=== PATIENT | female | born 1930 | race Caucasian/White ===

== ENCOUNTER → 2017-02-20 | Outpatient (CLI) | payer OTHER ==
[~2017-02-20] MED LIST: ACTONEL30 MG PO; ATACAND32 MG PO; ATIVAN0.5 MG; BENICAR20 MG PO; BIOTIN2500 MCG PO; CALCIUM OYSTER500 MG PO; CARDIZEM CD180 MG PO; CARDIZEM CD240 MG PO; CELEBREX 200 M200 MG PO; CRESTOR10 MG PO; FISH OIL 1,0001 EAC5 PO; K-DUR 20 MEQ T20 MEQ PO; KEFLEX500 MG; MULTIVITAMINS PO; NEXIUM40 MG PO; TAMSULOSIN HCL0.4 MG; TOPROL XL25 MG PO; TOPROL XL50 MG PO; VICODIN 5-5001 EACH; VITAMIN D31000 UNI2 PO
== END ==
LOC: RAD 01:34
DX: Z12.31 Encounter for screening mammogram for malignant neoplasm of breast (principal)

== ENCOUNTER → 2017-11-10 | Outpatient (CLI) | payer OTHER ==
[~2017-11-10] VITALS: Ht 157.5 cm; Wt 55.3 kg
[~2017-11-10] MED LIST changes: +ALPRAZOLAM 0.0.25 M1 PO; +ASPIR 8181 MG PO; +FOSAMAX 70 MG T70 MG PO; +IBUPROFEN 200200 M1 PO
--- NOTE | ~2017-11-10 | HPC ---
[facility] [place] [address] PAIN MANAGEMENT CONSULTATION Name: DICK YODER Room #: REG [facility] Raul.#: [id number] Admission: 11/10/17 Attend Phys: Jamie Chatterjee MD Discharge: Date of : 31 Report #: [id number] THIS REPORT FOR: //name// CC: Cal Chatterjee DATE OF SERVICE: 11/10/2017 CHIEF COMPLAINT: Left hip pain. HISTORY OF PRESENT ILLNESS: The patient is a arlene independent 87-year-old who I last saw in 2014. She was seen for a single visit and trigger point injection of the gluteus esperanza and medius muscles. She responded beautifully with complete pain relief and is back today with some recurrence. It should be also noted that she was seen in 2008 for the same problem and treated similarly without issue. Today, she reports once again recurrence of the hip pain that has been worsening, affecting her walking and ambulation. 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 Despite her significantly weak right leg, she has had no falls. She does not use a walking device. No cane. No walker. She does have osteoporosis and is treated for it with Fosamax and vitamin D3 and we have discussed the seriousness of falls at the age of 87. Cane maybe a tovar idea if she is walking any distance. 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 She requires no assistance at home. She continues to drive a car. She has noted the pain is worse with standing, walking but while sitting and lying down, she is perfectly comfortable. MEDICATIONS: Aspirin, alprazolam, Fosamax, diltiazem, metoprolol, cholecalciferol, fish oil. She takes Advil p.r.n. and uses Icy Hot. She was just recently started on alprazolam by Dr. Chang because of anxiety. When asked what makes her anxious, she says she has been worrying more about being alone. REVIEW OF SYSTEMS: Completed. The patient denies chest pain, shortness of breath, bowel or bladder issues. No falls noted. She has some degenerative osteoarthritis of multiple joints. She is treated for hypertension. SOCIAL HISTORY: She is , lives alone. Some family is nearby. She denies use of tobacco or alcohol. She does not take narcotic pain medication at this time. [facility] [address] [place] [address] PAIN MANAGEMENT CONSULTATION Name: DICK YODER Room #: REG CLNiesha CarterJelly#: [id number] Admission: 11/10/17 Attend Phys: Jamie Chatterjee MD Discharge: Date of : 31 Report #: [id number] PHYSICAL EXAMINATION: GENERAL: She is a arlene 87-year-old pleasant, alert and oriented, very sharp. VITAL SIGNS: Blood pressure is 172/72, heart rate 62, respirations 16. She is 5 feet 2 inches, 122 pounds, BMI of 22.3. CHEST: Clear. CARDIAC: Rhythm was regular. ABDOMEN: Soft. MUSCULOSKELETAL: She can independently move from a chair to a standing position. She walks moving her right leg cautiously and carefully to provide a stable point of transfer. She is able to turn without any instability. Spinal alignment is normal and she has good range of motion with no tenderness. She does have localized tenderness in the muscles of the left hip with mild radiation to the lateral thigh, but no further. Straight leg raising is negative for radicular symptoms. Deep tendon reflexes are trace at the knees and absent at the ankle. She has markedly weak and atrophied right leg. She is able, however, to hip flex, leg extend and she has some weakness in plantar and dorsiflexion. Sensation is intact. IMPRESSION: Left hip pain, chronic and recurrent, myofascial gluteus esperanza, gluteus medius. This has responded beautifully to simple trigger point injections up to 3-year intervals. PLAN: I will repeat the injections today as before with bupivacaine and triamcinolone. PROCEDURE: The patient was placed in the right lateral decubitus position and the right hip was prepped with ChloraPrep. Trigger points identified and injected in the gluteus esperanza medius in a fan-shape fashion with 8 mL of 0.25% bupivacaine and 40 mg triamcinolone. She tolerated the procedure well. She was observed for a short time and was discharged with improvement. Followup visit planned as needed. By: [id number] Jamie Chatterjee MD /nt
[2017-11-10 08:13] VITALS: BP 172/72
== END | disposition home or self-care (01) ==
LOC: PAIN 07:28
DX: M79.1 Myalgia (principal); M25.552 Pain in left hip; G89.29 Other chronic pain; I10 Essential (primary) hypertension; M19.90 Unspecified osteoarthritis, unspecified site; F41.9 Anxiety disorder, unspecified; Z98.890 Other specified postprocedural states; Z79.82 Long term (current) use of aspirin; Z79.899 Other long term (current) drug therapy; Z88.8 Allergy status to other drugs, medicaments and biological substances

== ENCOUNTER → 2018-01-05 | Outpatient (CLI) | payer OTHER ==
[~2018-01-05] VITALS: Ht 157.5 cm; Wt 55.7 kg
[~2018-01-05] MED LIST changes: +BENICAR40 MG PO
--- NOTE | ~2018-01-05 | HPC ---
[facility] [place] [address] [place] [address] PAIN MANAGEMENT CONSULTATION Name: DICK YODER [id number] Admission: 01/05/18 Attend Phys: Jamie Chatterjee MD Discharge: Date of : 31 Report #: [id number] THIS REPORT FOR: //name// CC: aCl Chatterjee DATE OF SERVICE: 01/05/2018 Followup visit for left hip pain and radiation into the left thigh. The patient returns to pain clinic today, presenting with symptoms more consistent with radiculopathy. I have treated her previously with triamcinolone trigger point injections, which were helpful. Today, I think her pain seems more related to the L4-L5 nerve root and in review of her MRI, I see that she has a grade 1 spondylolisthesis at L4-L5. She also has facet arthropathy there. Some of her pain may be radicular as well as some referred pain from the facet joint. MEDICATIONS: Reviewed and reconciled. She is on Benicar, Advil, aspirin, alprazolam, Fosamax, Cardizem, Toprol, vitamin D and fish oil. ALLERGIES: BARBITURATES AND CEPHALEXIN. PAST MEDICAL HISTORY: Significant for polio. She has a weak right leg with external rotation of the right leg. PQRS: Notes bright and alert 87-year-old with history of osteoarthritis involving hips and spine. She has kept her weight under control with a BMI of 22.5. She is under treatment for hypertension and is mildly hypertensive today with blood pressure 171/73, heart rate 70. She is not a fall risk and has not fallen in the last 3 months. She takes no opioid medication. Does not drink nor smoke. PHYSICAL EXAMINATION: Her gait is noted to be antalgic and she swings her right leg carefully with the foot pointed at 45 degrees lateral. This is chronic from her polio. She has tenderness located over the left hip and gluteus muscles with radiation and went straight leg raising into the left thigh. Sensation is intact. Generalized weakness is noted in the right leg from her polio. She has no foot drop on the left, but has weakness on the right. IMPRESSION: 1. 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 3. Hypertension. [address] [address] PAIN MANAGEMENT CONSULTATION Name: BEBADICK EMILIANO Room #: REG ALIVIA Raya#: [id number] Admission: 01/05/18 Attend Phys: Jamie Chatterjee MD Discharge: Date of : 31 Report #: [id number] RECOMMENDATIONS: Trial of epidural steroid injection L4-L5 left paramedian. PROCEDURE: She was taken to fluoroscopic suite, placed prone, skin prepped with ChloraPrep. Skin anesthetized over L4-L5. A 20-gauge Tuohy epidural needle was advanced first attempt in the epidural space with loss of resistance. There was no blood or CSF aspirated. 1 mL of Omnipaque injected. Good spread of dye observed into the epidural space followed by 3 mL of 0.5% lidocaine mixed with 80 mg of triamcinolone. She tolerated the procedure well and was taken to recovery room for observation. Followup visit planned on an as needed basis in the future. Series of injections is not recommended. We will see how she does with this shot. By: [id number] Jamie Chatterjee MD /nt
[2018-01-05 10:29] VITALS: BP 171/73
== END | disposition home or self-care (01) ==
LOC: PAIN 06:39
DX: M47.816 Spondylosis without myelopathy or radiculopathy, lumbar region (principal); G14 Postpolio syndrome; I10 Essential (primary) hypertension; Z79.82 Long term (current) use of aspirin; Z88.8 Allergy status to other drugs, medicaments and biological substances; Z98.890 Other specified postprocedural states; Z79.899 Other long term (current) drug therapy

== ENCOUNTER → 2018-05-21 | Outpatient (CLI) | payer OTHER ==
[~2018-05-21] VITALS: Ht 157.5 cm; Wt 54.9 kg
--- NOTE | ~2018-05-21 | HPC ---
[facility] [address] [place] [address] PAIN MANAGEMENT CONSULTATION Name: DICK YODER Room #: REG ALIVIA Raul.#: [id number] Admission: 05/21/18 Attend Phys: Jamie Chatterjee MD Discharge: Date of : 31 Report #: [id number] THIS REPORT FOR: //name// CC: AZUL Chatterjee DATE OF SERVICE: 05/21/2018 Followup visit for chronic low back pain with radiculopathy into the left hip and left thigh. The patient is a delightful 88-year-old who is here today for an epidural injection. 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 She had an injection in December, which she said was excellent. For nearly 3-4 months, pain relief was dramatic and then she has gradually had some recurrence of pain occurring over the last month or so. This will make about 5 months from her last injection. The pain today is once again described as a deep ache across her low back that radiates into her left thigh. It follows the L4-L5 nerve root. She has grade 1 spondylolisthesis at L4-L5 and facet arthropathy. She also has polio and has a fair amount of chronic pain in the right foot. She describes this as [id number]. She has had an articulating AFO, but apparently it has worn out. She tried to get another, was told that she could get one yet because of Medicare regulations. I did provide her with a number of different [id number] type options that she might is able to use rather than spend the $900 out of pocket for the more expensive AFO. The brace that provides the most support is a generic AFO and might work effectively for her. She was given the pamphlet profile for her own use going home. PQRS completed today shows that this is a pleasant and delightful outgoing 88-year-old with a pain score of 5/10. She does have osteoarthritis, particularly of the foot from her polio with chronic wear and tear. She also has pain in the knees and hips. She has kept her weight stable low normal, 22.5 BMI and a blood pressure today 171/73, heart rate 70. She is under treatment by Dr. Fuentes for hypertension. She is on no blood thinners. She has not fallen in the last 3 months and is not considered a fall risk at this time. She takes no opioid medications. She denies use of tobacco or alcohol. She is . IMPRESSION: 1. Chronic low back pain with radiculopathy on the right. 2. History of postpolio syndrome with weakness. 3. Hypertension. PROCEDURE: Epidural injection on the left L4-L5. [address] [address] PAIN MANAGEMENT CONSULTATION Name: DICK YODER Room #: REG ALIVIA Raya#: [id number] Admission: 05/21/18 Attend Phys: Jamie Chatterjee MD Discharge: Date of : 31 Report #: [id number] She was taken to fluoroscopic suite for the injection and placed prone. Skin prepped with ChloraPrep. Skin anesthetized over the L4-L5 interspace. A 20-gauge Tuohy epidural needle advanced first attempt into the epidural space with loss of resistance technique. There was no blood or CSF aspirated. 1 mL of Omnipaque injected. Good spread of dye observed into the epidural space, was followed by 3 mL of 0.5% lidocaine mixed with 80 mg of triamcinolone. She tolerated the procedure well and was observed for 45 minutes and discharged. We will see her back in the Pain Clinic on an as needed basis. We will try to use epidural injections carefully and judiciously going forward to avoid providing her with excessive amounts of corticosteroid. By: [id number] Jamie Chatterjee MD /nt
[2018-05-21 14:35] VITALS: BP 116/71
== END | disposition home or self-care (01) ==
LOC: PAIN 06:32
DX: M54.16 Radiculopathy, lumbar region (principal); G89.29 Other chronic pain; I10 Essential (primary) hypertension; M43.16 Spondylolisthesis, lumbar region; M12.88 Other specific arthropathies, not elsewhere classified, other specified site; Z88.8 Allergy status to other drugs, medicaments and biological substances; Z79.899 Other long term (current) drug therapy; Z79.82 Long term (current) use of aspirin

== ENCOUNTER → 2018-09-07 | Outpatient (CLI) | payer OTHER ==
[~2018-09-07] VITALS: Ht 157.5 cm; Wt 55.8 kg
[2018-09-07 13:06] VITALS: BP 156/70
--- NOTE | 2018-09-07 13:07 | NUR ---
Pain Clinic Assessment: 1. History of Osteoarthritis: no History of Rheumatoid Arthritis: no 2. Height: 5 ft. 2 in. 157.5 cm. Weight: 123.0 lb. oz. 55.792 kg. Patient's BMI: 22.5 3. Vital Signs: BP: 156/70 Pulse: 70 Resp: 18 Temp: 02 Sat: 98 ECG Mon: 4. Pain Intensity: 7 5. Fall Risk: Dizziness: N Needs help standing or walking: N Fallen in the last 3 months: N Fall risk comments: 6. Patient on Blood Thinner: None 7. History of Hypertension: Y 8. Opioid Therapy greater than 6 weeks: N Opiate Contract Signed: 9. Risk Assessment Tool Provided: 0-low 10. Functional Assessment Tool: 11. Recreational Drug Use: Never Drug Type: Tobacco Use: Never Smoker Tobacco Type: Amount or Packs/day: How Many Years: Alcohol Use: No Frequency: Quant:
--- NOTE | 2018-09-14 07:40 | HPC ---
[facility] [place] [address] PAIN MANAGEMENT CONSULTATION Name: DICK YODER Room #: REG LAIVIA Carter.#: [id number] Admission: 09/07/18 ������������������ Attend Phys: Jamie Chatterjee MD Discharge: ������������������ Date of : 31 Report #: [id number] THIS REPORT FOR: //name// CC: Cal Chatterjee DATE OF SERVICE: 09/07/2018 Followup visit for low back pain with radiculopathy, radiating into the left leg. The patient is delightful 88-year-old, who is here today for a repeat epidural injection. She has responded beautifully to epidural injections, most recently a left paramedian epidural injection at L3-L4, performed on 05/21/2018. Pain has only recently begun to return. She would like to repeat the injection. PHYSICAL EXAMINATION: GENERAL: She is a arlene, sharp 88-year-old, 5 feet 2 inches, 123 pounds. VITAL SIGNS: Blood pressure 126/70, heart rate 70, respirations 18. She scores her pain intensity down the left leg, is a 7/10. MUSCULOSKELETAL: She is not a fall risk and moves easily from standing position. Her gait is a bit antalgic, but she does not appear to be a fall risk. She is on no opioid medication, whatsoever. Straight leg raising is positive on the left. IMPRESSION: Low back pain with radiculopathy. RECOMMENDATIONS: Repeat epidural injection L3-L4 under fluoroscopic guidance, left paramedian approach. She was taken to the fluoroscopic suite, placed prone, skin prepped with ChloraPrep. Skin anesthetized over the L3-L4 interspace to the left midline. A 20-gauge Tuohy epidural needle was advanced in the first attempt in the epidural space with loss of resistance technique. There was no blood or CSF aspirated. 1 mL of Omnipaque injected. Good spread of dye observed into the epidural space, followed by 3 mL of 0.5% lidocaine mixed with 80 mg of triamcinolone. She tolerated the procedure well, was observed for 45 minutes and discharged. Pain score 0 at discharge. ��������������������������������������������� <ELECTRONICALLY SIGNED> ���������������������������������������� By: Jamie Chatterjee MD ��������������������������������������������� 09/14/18 0740 [id number] Jamie Chatterjee MD /nt
== END | disposition home or self-care (01) ==
LOC: PAIN 08:28
DX: M54.16 Radiculopathy, lumbar region (principal); G89.29 Other chronic pain; Z98.890 Other specified postprocedural states; Z88.8 Allergy status to other drugs, medicaments and biological substances; Z79.82 Long term (current) use of aspirin; Z79.899 Other long term (current) drug therapy

== ENCOUNTER → 2018-11-30 | Outpatient (CLI) | payer OTHER ==
[~2018-11-30] VITALS: Ht 157.5 cm; Wt 55.1 kg
--- NOTE | ~2018-11-30 | HPC ---
[facility] [address] [place] [address] PAIN MANAGEMENT CONSULTATION Name: DICK YODER Room #: REG ALIVIA Carter.#: [id number] Admission: 11/30/18 ������������������ Attend Phys: Jamie Chatterjee MD Discharge: ������������������ Date of : 31 Report #: [id number] THIS REPORT FOR: //name// CC: AZUL Chatterjee DATE OF SERVICE: 11/30/2018 Followup visit for chronic low back pain with radiculopathy. The patient returns to the pain clinic today for a lumbar epidural injection. I have been seeing her intermittently for pain dating back to 2005. This new pain is in her low back and consistent with previous visits on the left side, radiating to the left leg. She has polio and has weak leg on the right. The left leg is her dominant leg and when the pain is severe, it limits her ability to get around. She has continued to remain independent. She lives in her own home, drives her own car and brought herself to her visit today, as she has done in the past. PQRS: PQRS is completed. She has osteoarthritis of the foot on the right. She believes this is from her polio and she has been seeing a physician for management of calluses forms also along that arthritic leg. She has a BMI of 22, down slightly from previous visit. Her blood pressure is 167/94, heart rate 65 and respirations 14. She has a history of hypertension and is under treatment. All medications were reviewed and reconciled. She is on no blood thinners. She has not fallen recently and is careful by getting around. She is not taking any opioid medication and denies use of tobacco or alcohol. PHYSICAL EXAMINATION: VITAL SIGNS: She is 5 feet 2 inches, 121 pounds and BMI is 22. Blood pressure 167/94, heart rate 65. She moves independently to a standing position and walks with antalgic features as much due to her polio as to her radicular pain. She has positive straight leg raising on the left, consistent with radiculopathy. IMPRESSION: Chronic low back pain with left lumbar radiculopathy. X-ray evidence of degenerative disk space narrowing at L2-L3 and L4-L5. Spinal stenosis with ligamentum thickening. Spondylolisthesis of L4 on L5 with facet joint arthropathy. PROCEDURE: Left paramedian L4-L5 epidural steroid injection under fluoroscopic guidance. DESCRIPTION OF PROCEDURE: She was taken to the fluoroscopic suite and placed [address] [address] PAIN MANAGEMENT CONSULTATION Name: DICK YODER Room #: REG CLI Burton.#: [id number] Admission: 11/30/18 ������������������ Attend Phys: Jamie Chatterjee MD Discharge: ������������������ Date of : 31 Report #: [id number] prone. Skin prepped with ChloraPrep. Skin anesthetized over the L4-L5 interspace. A 20-gauge Tuohy epidural needle advanced easily in the epidural space with loss of resistance technique. There was no blood or CSF aspirated. A 1 mL of Omnipaque injected, with excellent spread of dye observed into the epidural space. This was followed by 3 mL of 0.5% lidocaine mixed with 80 mg of triamcinolone. She tolerated the procedure well, but had some increasing weakness in the recovery room and we made her stay about 90 minutes before she could ambulate safely to her vehicle. Phone call will be placed later tonight to check on her. She tolerated the procedure well, though and there were no other complications. Her pain score was 0 at discharge. ��������������������������������������������� ���������������������������������������� By: ��������������������������������������������� [id number] Jamie Chatterjee MD /nt
[2018-11-30 14:31] VITALS: BP 167/94
--- NOTE | 2018-11-30 14:39 | NUR ---
Pain Clinic Assessment: 1. History of Osteoarthritis: no History of Rheumatoid Arthritis: no 2. Height: 5 ft. 2 in. 157.5 cm. Weight: 121.4 lb. oz. 55.067 kg. Patient's BMI: 22.2 3. Vital Signs: BP: 167/94 Pulse: 65 Resp: 14 Temp: 02 Sat: 98 ECG Mon: 4. Pain Intensity: 7 5. Fall Risk: Dizziness: N Needs help standing or walking: N Fallen in the last 3 months: N Fall risk comments: 6. Patient on Blood Thinner: None 7. History of Hypertension: Y 8. Opioid Therapy greater than 6 weeks: N Opiate Contract Signed: 9. Risk Assessment Tool Provided: 0-low 10. Functional Assessment Tool: 11. Recreational Drug Use: Never Drug Type: Tobacco Use: Never Smoker Tobacco Type: Amount or Packs/day: How Many Years: Alcohol Use: No Frequency: Quant:
== END | disposition home or self-care (01) ==
LOC: PAIN 11-20 11:25
DX: M51.16 Intervertebral disc disorders with radiculopathy, lumbar region (principal); G89.29 Other chronic pain; M48.061 Spinal stenosis, lumbar region without neurogenic claudication; M43.16 Spondylolisthesis, lumbar region; M12.88 Other specific arthropathies, not elsewhere classified, other specified site; I10 Essential (primary) hypertension; Z79.899 Other long term (current) drug therapy; Z79.82 Long term (current) use of aspirin; Z88.8 Allergy status to other drugs, medicaments and biological substances

== ENCOUNTER → 2019-03-05 | Outpatient (CLI) | payer OTHER | LOC: RAD 01:22 | DX: Z12.31 Encounter for screening mammogram for malignant neoplasm of breast (principal) ==

== ENCOUNTER → 2019-09-02 | Outpatient (CLI) | payer OTHER ==
[~2019-09-02] VITALS: Ht 157.5 cm; Wt 55.2 kg
[2019-09-02 10:10] VITALS: BP 187/81
--- NOTE | 2019-09-02 10:21 | NUR ---
Pain Clinic Assessment: 1. History of Osteoarthritis: no History of Rheumatoid Arthritis: no 2. Height: 5 ft. 2 in. 157.5 cm. Weight: 121.8 lb. oz. 55.248 kg. Patient's BMI: 22.3 3. Vital Signs: BP: 187/81 Pulse: 67 Resp: 16 Temp: 02 Sat: 95 ECG Mon: 4. Pain Intensity: 7-8 5. Fall Risk: Dizziness: N Needs help standing or walking: N Fallen in the last 3 months: N Fall risk comments: 6. Patient on Blood Thinner: None 7. History of Hypertension: Y 8. Opioid Therapy greater than 6 weeks: N Opiate Contract Signed: 9. Risk Assessment Tool Provided: 0-low 10. Functional Assessment Tool: 11. Recreational Drug Use: Never Drug Type: Tobacco Use: Never Smoker Tobacco Type: Amount or Packs/day: How Many Years: Alcohol Use: No Frequency: Quant:
--- NOTE | 2019-09-09 14:30 | HPC ---
[facility] [address] [address] PAIN MANAGEMENT CONSULTATION Name: DICK YODER Room #: REG ALIVIA Raul.#: [id number] Admission: 09/02/19 Attend Phys: Jamie Chatterjee MD Discharge: Date of : 31 Report #: [id number] THIS REPORT FOR: cc: Azul Fuentes II, MD, II,Azul Chatterjee,Jamie Huang MD ~ THIS REPORT FOR: //name// CC: AZUL Chatterjee DATE OF SERVICE: 09/02/2019 The patient returns to pain clinic today with recurrence of pain. I have treated her successfully with lumbar epidural injections on several occasions, most recently in 11/2018. She does have quite significant spinal stenosis at level L4-L5. When I injected her with a left paramedian injection at her last visit with 0.5% lidocaine, she had weakness and numbness in her legs, causing her to remain in recovery room for about 90 minutes. I personally ambulated her to the car! she thanked me for that today. She still did very well with the injections; however, her pain relief was substantial for many months. She is here today hoping that we can repeat the injections. Her pain once again is on her left leg, which is important. She had polio as a child and weakness on her right. Left is her dominant leg and this dramatically affects her mobility. She drove herself to her apartment again today as she did previously and remains independent living in her own independent living location. PQRS: Positive for spinal degenerative changes, but no osteoarthritis. She is 5 feet 2 inches, 121 pounds with a BMI of 22.3. Her blood pressure 187/81, heart rate 65, respirations 16, O2 sat 95 with pain intensity of 8/10 today. She is not a fall risk, does not use a cane and has not fallen in the last 3 months. She denies use of blood thinning medication, but Dr. Aguilar treats her for hypertension with medication. I have reviewed all her medications include omega 3, cholecalciferol, metoprolol, diltiazem, Fosamax, alprazolam p.r.n. for sleep, aspirin 81 mg, and Benicar 40 mg daily. She is not on an opioid, has not signed an opioid agreement, but as we do with all patients, she has signed an opioid risk tool assessment and scored 0. Functional assessment score is 46/70 suggesting there is a fair amount of impact of her pain on her day-to-day activities. She denies use of tobacco and [address] [address] PAIN MANAGEMENT CONSULTATION Name: DICK YODER [facility] [id number] Admission: 09/02/19 Attend Phys: Jamie Chatterjee MD Discharge: Date of : 31 Report #: [id number] alcohol. PHYSICAL EXAMINATION: As noted. She moves independently from sitting to standing position while ambulates with mildly antalgic features. Her polio does play a role in that she has some with weakness. What is notable is a left sided radicular symptoms with straight leg raising on both the sitting and supine position. She has mild tingling and numbness. X-rays have shown spondylolisthesis of L4 on L5 with facet arthropathy at that level, which I have injected her. IMPRESSION: Lumbar radiculopathy secondary to spondylolisthesis L4 and L5. PROCEDURE: Lumbar epidural injection. DESCRIPTION OF PROCEDURE: After informed consent, she was taken to fluoroscopic suite, placed prone, skin prepped with ChloraPrep. Skin was anesthetized over the L4-L5 interspace and a 20-gauge Tuohy epidural needle advanced on first attempt in the epidural space with loss of resistance technique. There was no blood or CSF aspirated. A 1 mL of Omnipaque was injected and excellent spread of dye observed in the epidural space, was followed by 3 mL of 0.1% lidocaine, a substantial reduction in concentration mixed with 40 mg of triamcinolone. She tolerated the procedure well and was observed for 45 minutes and discharged. Follow up as needed. <ELECTRONICALLY SIGNED> By: Jamie Chatterjee MD 09/09/19 1430 [id number] Jamie Chatterjee MD /nt
== END | disposition home or self-care (01) ==
LOC: PAIN 06:47
DX: M54.16 Radiculopathy, lumbar region (principal); M43.16 Spondylolisthesis, lumbar region; G89.29 Other chronic pain; I10 Essential (primary) hypertension; Z98.890 Other specified postprocedural states; Z79.899 Other long term (current) drug therapy; Z79.82 Long term (current) use of aspirin; Z88.8 Allergy status to other drugs, medicaments and biological substances

== ENCOUNTER → 2019-09-20 | Outpatient (CLI) | payer OTHER ==
[~2019-09-20] VITALS: Ht 157.5 cm; Wt 55.3 kg
[~2019-09-20] MED LIST changes: +ADVIL200 M1 PO
--- NOTE | ~2019-09-20 | HPC ---
[facility] [place] [address] PAIN MANAGEMENT CONSULTATION Name: DICK YODER [id number] Admission: 09/20/19 Attend Phys: Jamie Chatterjee MD Discharge: Date of : 32 Report #: [id number] THIS REPORT FOR: cc: Cal Fuentes II, MD, II,Cal Chatterjee,Jamie Huang MD ~ CC: Cal Chatterjee DATE OF SERVICE: 09/20/2019 Follow up visit for osteoarthritis, left shoulder and low back pain with radiculopathy. The patient had an epidural injection performed on 09/20/2019. This almost always provides excellent pain relief, but the last injection did not help as much. She would like to repeat the injection. We have told her we must wait at least a month between injections. She is here today also complaining of significant pain in the left shoulder. She did have an injection at the Orthopedics office several months ago with limited improvement. I told her that I will be willing to repeat the injection if I felt it was indicated. PQRS review completed shows that she has spinal degenerative changes. Although, her x-rays apparently did not show significant arthritic changes of the shoulders. She may have some bursitis or tendinitis there. She denies other osteoarthritis. BMI is 22.3. Blood pressure today 184/84, heart rate 69, respirations 16, O2 sat 96. She has not fallen in the last 3 months. She denies use of blood thinner. She is under treatment for hypertension. All medications provided by Dr. Cal Fuentes. All medications reviewed and reconciled. She does not use opioids, but has completed an opioid risk assessment tool and scored 0. Her functional assessment score remains moderate in the mid 40s. PHYSICAL EXAMINATION: GENERAL: She pleasant, alert and oriented. No signs of dementia, anxiety or depression. Excellent memory. HEENT: Normal. CHEST: Clear. CARDIAC: Rhythm regular. I could not hear a murmur. 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 Examination of the low back reveals tenderness across the lumbosacral segment. She has positive straight leg raising on the left, again reproducing radicular symptoms. Mild numbness and tingling. She has weakness [place] [address] PAIN MANAGEMENT CONSULTATION Name: DICK YODER Room #: REG [facility] Elver#: [id number] Admission: 09/20/19 Attend Phys: Jamie Chatterjee MD Discharge: Date of : 31 Report #: [id number] her polio. Examination of the left shoulder reveals tenderness and crepitus with external rotation and abduction. IMPRESSION: 1. Lumbar radiculopathy secondary to spondylolisthesis, L4 and L5. 2. History of polio. 3. Left shoulder pain with bursitis/tendinitis. PROCEDURE: Injection of left shoulder. Skin prepped with ChloraPrep. Skin anesthetized and a 27-gauge needle gently advanced into the shoulder joint capsule from behind. I injected a total of 4 mL of 0.5% bupivacaine mixed with 40 mg of triamcinolone. She tolerated the procedure well and was significantly improved at discharge. I will see her back in the pain clinic for consideration of another epidural injection. It is disappointing that she did not get the similar relief that she has had before for her left leg pain. In reviewing those films, it does appear that some of her medication spread into the right within the epidural space. We could try to focus more to the left with her subsequent injection. By: [id number] Jamie Chatterjee MD /nt
[2019-09-20 09:12] VITALS: BP 184/84
--- NOTE | 2019-09-20 09:18 | NUR ---
Pain Clinic Assessment: 1. History of Osteoarthritis: no History of Rheumatoid Arthritis: no 2. Height: 5 ft. 2 in. 157.5 cm. Weight: 122.0 lb. oz. 55.339 kg. Patient's BMI: 22.3 3. Vital Signs: BP: 184/84 Pulse: 69 Resp: 16 Temp: 02 Sat: 96 ECG Mon: 4. Pain Intensity: 8 5. Fall Risk: Dizziness: N Needs help standing or walking: N Fallen in the last 3 months: N Fall risk comments: 6. Patient on Blood Thinner: None 7. History of Hypertension: Y 8. Opioid Therapy greater than 6 weeks: N Opiate Contract Signed: 9. Risk Assessment Tool Provided: 0-low 10. Functional Assessment Tool: 11. Recreational Drug Use: Never Drug Type: Tobacco Use: Never Smoker Tobacco Type: Amount or Packs/day: How Many Years: Alcohol Use: No Frequency: Quant:
== END | disposition home or self-care (01) ==
LOC: PAIN 06:37
DX: M25.512 Pain in left shoulder (principal); M75.52 Bursitis of left shoulder; M54.16 Radiculopathy, lumbar region; M43.16 Spondylolisthesis, lumbar region; G89.29 Other chronic pain; Z98.890 Other specified postprocedural states; Z79.899 Other long term (current) drug therapy; Z88.8 Allergy status to other drugs, medicaments and biological substances; Z79.82 Long term (current) use of aspirin

== ENCOUNTER → 2019-10-04 | Outpatient (CLI) | payer OTHER ==
[~2019-10-04] VITALS: Ht 157.5 cm; Wt 53.7 kg
--- NOTE | ~2019-10-04 | HPC ---
[facility] [place] [address] PAIN MANAGEMENT CONSULTATION Name: DICK YODER Room #: REG [facility] ZeldaJellyBurton.#: [id number] Admission: 10/04/19 Attend Phys: Jamie Chatterjee MD Discharge: Date of : 31 Report #: [id number] THIS REPORT FOR: cc: Azul Fuentes II, MD, II,Azul Chatterjee,Jamie Huang MD ~ CC: AZUL Chatterjee DATE OF SERVICE: 10/04/2019 Followup visit for severe left lumbar radiculopathy. The patient returns to Pain Clinic today for epidural injection. We will use reduced triamcinolone. Her pain continues to limit her ability to live independently, ching goal of hers. She has responded exceptionally well to epidural injections in the past. Because of her use of triamcinolone, age and risks for worsening of osteopenia/osteoporosis, I will use a reduced dose of triamcinolone today. We discussed COVID virus so prominent on everyone's minds. We talked about the importance of remaining quarantined and isolated. She will go directly home after the injection. PHYSICAL EXAMINATION: GENERAL: She is pleasant, alert and oriented. She walks with a cane. She has polio and has weakness. Her pain is in her left as before with positive straight leg raising, reproducing pain in a radicular distribution. Vital signs noted on the electronic medical record. IMPRESSION: Lumbar radiculopathy. PROCEDURES: Epidural steroid injection for spondylolisthesis, L4-L5; lumbar radiculopathy, L4-L5, L5-S1. PROCEDURE: After informed consent, she was taken to fluoroscopic suite, placed prone, skin prepped with ChloraPrep. Skin anesthetized over the L3-L4 interspace above her spondylolisthesis. A 20-gauge Tuohy epidural needle advanced, first attempt in the epidural space with loss of resistance. There was no blood and no CSF aspirated. A 1 mL of Omnipaque was injected. Good spread of dye was seen in the epidural space. It was followed by 3 mL of 0.5% lidocaine mixed with 40 mg of triamcinolone. She tolerated the procedure well and was observed for 45 minutes and discharged. [facility] [address] [place] [address] PAIN MANAGEMENT CONSULTATION Name: DICK YODER Room #: REG CL Raul.#: [id number] Admission: 10/04/19 Attend Phys: Jamie Chatterjee MD Discharge: Date of : 31 Report #: [id number] Follow up as needed. By: [id number] Jamie Chatterjee MD /nt
[2019-10-04 09:28] VITALS: BP 157/74
--- NOTE | 2019-10-04 09:38 | NUR ---
Pain Clinic Assessment: 1. History of Osteoarthritis: no History of Rheumatoid Arthritis: no 2. Height: 5 ft. 2 in. 157.5 cm. Weight: 118.4 lb. oz. 53.706 kg. Patient's BMI: 21.7 3. Vital Signs: BP: 157/74 Pulse: 61 Resp: 18 Temp: 02 Sat: 100 ECG Mon: 4. Pain Intensity: 8 WHEN PAINFUL; NOW 2 5. Fall Risk: Dizziness: N Needs help standing or walking: Y Fallen in the last 3 months: N Fall risk comments: 6. Patient on Blood Thinner: None 7. History of Hypertension: Y 8. Opioid Therapy greater than 6 weeks: N Opiate Contract Signed: 9. Risk Assessment Tool Provided: 0-low 10. Functional Assessment Tool: 11. Recreational Drug Use: Never Drug Type: Tobacco Use: Never Smoker Tobacco Type: Amount or Packs/day: How Many Years: Alcohol Use: No Frequency: Quant:
== END | disposition home or self-care (01) ==
LOC: PAIN 06:42
DX: M54.16 Radiculopathy, lumbar region (principal); M43.16 Spondylolisthesis, lumbar region; G89.29 Other chronic pain; Z98.890 Other specified postprocedural states; Z88.8 Allergy status to other drugs, medicaments and biological substances; Z79.899 Other long term (current) drug therapy; Z79.82 Long term (current) use of aspirin

== ENCOUNTER → 2019-12-16 | Outpatient (CLI) | payer OTHER ==
[~2019-12-16] VITALS: Ht 157.5 cm; Wt 54.9 kg
[~2019-12-16] MED LIST changes: +DILTIAZEM 24HR360 M1 PO; +XANAX 0.25 MG0.25 MG PO
--- NOTE | ~2019-12-16 | HPC ---
[facility] [address] [place] [address] PAIN MANAGEMENT CONSULTATION Name: DICK LUQUE Room #: REG [facility] Raul.#: [id number] Admission: 12/16/19 Attend Phys: Jamie Chatterjee MD Discharge: Date of : 31 Report #: [id number] THIS REPORT FOR: cc: Cal Fuentes II, MD, II,Cal Chatterjee,Jamie Huang MD ~ CC: Cal Chatterjee DATE OF SERVICE: 12/16/2019 Followup visit for chronic low back pain with radiculopathy. The patient returns to pain clinic today and unfortunately her last two epidurals have not provided relief. I took great care to look at her x-ray pictures from her injections including the ones that were successful a year or so ago. The injections were at the same level and nearly identical with excellent epidurogram prior to injection of the steroid and local anesthetic. I believe the medicines are appropriately placed, but unfortunately, they are not continuing to provide relief. Because of her age and we discussed previously her worsening risk of osteoporosis and osteopenia, I feel that we should be careful about proceeding with any further injections. I did consider a transforaminal injection, which can sometimes be more helpful, particularly in patients with spondylolisthesis. If she does not respond to some more conservative measures, we will consider that option. She is 89 years old and she is very active, sharp and functional. 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 We discussed options for pain medication, but both Dr. Fuentes and Niesha are concerned about providing her with medicines that may contribute to a fall. The patient of course shares these ____. On physical examination today, she is bright and alert. She complains of pain in her back and hands. PQRS REVIEW: Positive for osteoarthritis of the spine and hands and she has a BMI of 22.1. Her blood pressure is 157/67, heart rate 58, respirations 16, pain intensity is 7/10 particularly with standing. She is quite comfortable in the sitting position. She needs help standing and walking, but has not fallen in the last 3 months and we hope to keep it that way. She denies use of blood thinning medications. Dr. Luque provides her medication for hypertension and we reviewed all medications from her EMR. She is not on an opioid contract, but did complete an opioid risk tool as we ask all of our pain patients to do. She [facility] [address] [facility] [place] [address] PAIN MANAGEMENT CONSULTATION Name: DICK LUQUE Room #: REG CL[facility]ies[facility] Raya#: [id number] Admission: 12/16/19 Attend Phys: Jamie Chatterjee MD Discharge: Date of : 31 Report #: [id number] is at 0, considered extremely low risk for any addictive activities with pain medicines. Her functional assessment score today is 46 and has been consistent with fairly significant impact of pain in her day-to-day activities. She denies use of tobacco and alcohol. PHYSICAL EXAMINATION: VITAL SIGNS: As noted above. She is pleasant, alert and oriented. MUSCULOSKELETAL: She moves independently from sitting to standing position. Her gait is antalgic and weak, owing to her polio. She has tenderness across the lumbosacral spine, which is mild to moderate. She has pain in the left hip. Pain then radiates from the left hip into her leg without straight leg raising discomfort today. She did have previously. She has no pain with internal and external rotation of the hip. IMAGING: X-rays show spondylolisthesis at L4-L5. IMPRESSION: 1. Chronic lumbar radiculopathy with spondylolisthesis, L4-L5. 2. Recent lack of response to epidural injections. RECOMMENDATIONS: After some discussion, I have ordered for her a compound cream that include neuropathic and anti-inflammatory components from [facility]. We will see if this is cost effective. I was very thorough in my description of using the medication 3 times a day in order to receive maximum benefits. Hopefully, this would not bother her skin. It carries with it fewer side effects with cognitive or lightheadedness or dizziness. Followup visit planned after she has a trial of her compound cream. We are currently working on the regimen, which will include gabapentin, lidocaine and nonsteroidal anti-inflammatory drug and possibly ____ patients. ____ pharmacy at this time. By: [id number] Jamie Chatterjee MD /nt
[2019-12-16 08:47] VITALS: BP 157/67
--- NOTE | 2019-12-16 08:58 | NUR ---
Pain Clinic Assessment: 1. History of Osteoarthritis: BACK HANDS History of Rheumatoid Arthritis: no 2. Height: 5 ft. 2 in. 157.5 cm. Weight: 121.0 lb. oz. 54.885 kg. Patient's BMI: 22.1 3. Vital Signs: BP: 157/67 Pulse: 58 Resp: 16 Temp: 02 Sat: 100 ECG Mon: 4. Pain Intensity: 6-7 5. Fall Risk: Dizziness: N Needs help standing or walking: Y Fallen in the last 3 months: N Fall risk comments: 6. Patient on Blood Thinner: None 7. History of Hypertension: Y 8. Opioid Therapy greater than 6 weeks: N Opiate Contract Signed: 9. Risk Assessment Tool Provided: 0-low 10. Functional Assessment Tool: 11. Recreational Drug Use: Never Drug Type: Tobacco Use: Never Smoker Tobacco Type: Amount or Packs/day: How Many Years: Alcohol Use: No Frequency: Quant:
== END ==
LOC: PAIN 06:52
DX: M47.26 Other spondylosis with radiculopathy, lumbar region (principal); M19.042 Primary osteoarthritis, left hand; M19.041 Primary osteoarthritis, right hand

== ENCOUNTER → 2020-03-22 | Outpatient (CLI) | payer OTHER | LOC: RAD 08:47 | PROVIDERS: ATTEND Family Medicine | DX: Z12.31 Encounter for screening mammogram for malignant neoplasm of breast (principal) ==

== ENCOUNTER → 2020-09-28 | Outpatient (CLI) | payer OTHER ==
[~2020-09-28] VITALS: Ht 157.5 cm; Wt 54.2 kg
[~2020-09-28] MED LIST changes: +VITAMIN D31250 MCG PO
[2020-09-28 10:57] VITALS: BP 166/76
--- NOTE | 2020-09-28 11:11 | NUR ---
Pain Clinic Assessment: 1. History of Osteoarthritis: BACK HANDS History of Rheumatoid Arthritis: no 2. Height: 5 ft. 2 in. 157.5 cm. Weight: 119.6 lb. oz. 54.250 kg. Patient's BMI: 21.9 3. Vital Signs: BP: 166/76 Pulse: 58 Resp: 14 Temp: 02 Sat: 100 ECG Mon: 4. Pain Intensity: 3 5. Fall Risk: Dizziness: N Needs help standing or walking: Y Fallen in the last 3 months: N Fall risk comments: 6. Patient on Blood Thinner: None 7. History of Hypertension: Y 8. Opioid Therapy greater than 6 weeks: N Opiate Contract Signed: 9. Risk Assessment Tool Provided: 0-low 10. Functional Assessment Tool: 11. Recreational Drug Use: Never Drug Type: Tobacco Use: Never Smoker Tobacco Type: Amount or Packs/day: How Many Years: Alcohol Use: No Frequency: Quant:
== END ==
LOC: PAIN 06:42
PROVIDERS: ATTEND Anesthesiology Pain Medicine
DX: M54.16 Radiculopathy, lumbar region (principal); G89.29 Other chronic pain

== ENCOUNTER → 2020-10-05 | Outpatient (CLI) | payer OTHER ==
[~2020-10-05] VITALS: Ht 157.5 cm; Wt 52.7 kg
[~2020-10-05] MED LIST changes: +OSTEO BI-FLEX1 EAC1 PO
[2020-10-05 14:38] VITALS: BP 172/64
--- NOTE | 2020-10-05 14:48 | NUR ---
Pain Clinic Assessment: 1. History of Osteoarthritis: BACK HANDS History of Rheumatoid Arthritis: no 2. Height: 5 ft. 2 in. 157.5 cm. Weight: 116.2 lb. oz. 52.708 kg. Patient's BMI: 21.2 3. Vital Signs: BP: 172/64 Pulse: 52 Resp: 16 Temp: 02 Sat: 98 ECG Mon: 4. Pain Intensity: 8 walking 5. Fall Risk: Dizziness: N Needs help standing or walking: Y Fallen in the last 3 months: N Fall risk comments: 6. Patient on Blood Thinner: None 7. History of Hypertension: Y 8. Opioid Therapy greater than 6 weeks: N Opiate Contract Signed: 9. Risk Assessment Tool Provided: 0-low 10. Functional Assessment Tool: 11. Recreational Drug Use: Never Drug Type: Tobacco Use: Never Smoker Tobacco Type: Amount or Packs/day: How Many Years: Alcohol Use: No Frequency: Quant:
== END | disposition home or self-care (01) ==
LOC: PAIN 06:56
PROVIDERS: ATTEND Anesthesiology Pain Medicine
DX: M54.16 Radiculopathy, lumbar region (principal); M48.061 Spinal stenosis, lumbar region without neurogenic claudication; M41.86 Other forms of scoliosis, lumbar region; G89.29 Other chronic pain; Z98.890 Other specified postprocedural states; Z79.899 Other long term (current) drug therapy; Z88.8 Allergy status to other drugs, medicaments and biological substances